=== PATIENT | male | born 1955 | race Caucasian/White ===

== ENCOUNTER 2016-08-16 06:33 | Day surgery (SDC) | payer OTHER ==
[2016-08-16] VITALS (11 sets, daily range): BP systolic 136–162; BP diastolic 74–89; PULSE 53–72; RESP 12–17; O2SAT 95–98
[~2016-08-16] VITALS: Ht 182.9 cm; Wt 86.2 kg
[~2016-08-16 06:33] MED LIST: Bupivacaine Liposome 1.3% 20 mL Inj INFILTRATE SCH; Lactated Ringer's 1,000 ML IV ONE; Vancomycin Inj 1,000 MG in IV Premix 1 EACH IV ONE
[2016-08-16] MEDS ORDERED: Propofol 10,000 mCg/mL 20 mL Inj ONE (06:34)
[2016-08-16] MEDS ORDERED: fentaNYL-PF 50 mCg/mL 2 mL Inj ONE (06:34)
[2016-08-16] MEDS ORDERED: Dexamethasone 4 mg/mL Inj ONE (06:34)
[2016-08-16] MEDS ORDERED: Ondansetron 2 mg/mL 2 mL Inj ONE (06:34)
--- NOTE | 2016-08-16 06:40 | PCM.HPANE ---
Patient Data Surgeon Admitting Provider: Attending Provider:Frank Elliott MD Primary Care Physician:Cristal Bustillos MD Other Provider:Charla Hernandezingham Anesthesia Reason for Visit Left Knee Arthritis Ht/WT & BMI Height (Feet): 6 Height (Inches): 0.5 Weight (Kilograms): 85.37 Body Mass Index 25.00 Allergies Coded Allergies: No Known Allergies (Verified Allergy, Unknown, 08/10/16) Past Anesthesia History Anesthesia History: Denies:: Abnormal Airway, Difficult Intubation, Fam Anesthesia Reaction, Fam Malignant Hypertherm, Malignant Hyperthermia Diabetes History Hx Diabetes?: No MRSA MRSA: No Medications No Active Prescriptions or Reported Meds History History of ENT Problems?: No HEENT History: Denies:: Abnormal Airway Difficult Intubation Dysphagia Hearing Problem Hx of Heart Problems?: Yes Cardiovascular History: Denies:: Atrial Fibrillation Chest Pain Heart Murmur Hypertension Thrombophlebitis (VARICOSITY RLE) Hx of Respiratory Problem?: Yes Respiratory History: Positive for:: Cough Denies:: Asthma COPD Hemoptysis Pneumonia Tuberculosis Use of C-PAP Machine Hx Neurologic Problems?: No Neurological History: Denies:: CVA Hx of GI Problems?: Yes Gastrointestinal History: Denies:: Diverticulitis (DIVERTICULOSIS) Gastroesphageal Reflux Hiatal Hernia Rectal Bleeding (HX OF COLON POLYPS/HEMORRHOIDS) Other GI Pertinent History: HX UMBILICAL HERNIA INTENTIONAL 30# WEIGHT LOSS S/P APPY,EXC SEBACEOUS CYST ON ABD Hx of Problems?: No Male Hx: Denies:: Prostate Problems Scrotal Mass Testicular Surgery Skin History: Positive for:: History Skin Disorders? (S/P EXC BASAL CELL CA) Denies:: Pressure Ulcers Hx Musculoskeletal Problems?: Yes Musculoskeletal History: Positive for:: Degenerative Joint Musculoskeletal Trauma (S/P B/L KNEE MENISECTOMIES) Osteoarthritis (LT KNEE=CURRENT PROBLEM) Denies:: Joint Replacement Hx of Psycho/Social Problems?: No Hx Surgeries?: Yes (left foot nerve, bilateral knee, appy,EXC BASAL CELL CA, SEBACEOUS CYST EXC) Hx Any Other Health Problems?: Yes Other History: Positive for:: Cancer (BASAL CELL CA) Denies:: Endocrine Disease Hospitalization Thyroid Disease History Blood Transfusions: Denies:: Blood Transfusions Hx Diabetes: No Hx Alcohol Use: YesAlcoholic Drinks Per Day: 7/WEEKHx Substance Use: Yes ( TRIED MARIJUANA FOR PAIN CONTROL) Smoking Status: Never Smoker Have You Smoked inLast 12 mo: No Stop/Bang S-Snoring: Do You Snore Loudly: No T-Tired: feel tired, fatigued: No O-Obsered: Observed not breath: No P-Blood Pressure: treated: No B- Body Mass Index > 35 kg/m2: No A- Age over 50: Yes N- Neck Large Circumference: No G- Gender Male: Yes SABINE Total Score: 2 SABINE Risk Assessment: Low Risk, <3 Yes Risk Assessment Category Category 1A: Patient has history of documented sleep apnea, and HAS NOT received any narcotic, sedative or anesthesia administration during this stay. Category 1B: Patient has history of documented sleep apnea, and HAS received any narcotic , sedative or anesthesia administration during this stay Category 2: Patient has SUSPECTED Obstructive Sleep Apnea, and HAS received any narcotic , sedative or anesthesia administration during this stay. Category 3: Patient has SUSPECTED Obstructive Sleep Apnea and HAS NOT received narcotic, sedative or anesthesia administration during this stay. Category 4: Outpatient in Procedural Areas with known sleep apnea or who screen positive for High Risk via the STOP/BANG questionnaire. Exam Exam General Appearance: Alert, Oriented X3, Cooperative, No Acute Distress HEENT/AIRWAY: MP 2 Lungs: Clear to Auscultation, Normal Air Movement Heart: Exam Unremarkable, Regular Rate/Rhythm, No Murmurs/Rubs/Gallops Plan Impression Patient chart reviewed, patient interviewed and anesthestic plan with risks, benefits, and alternatives discussed, and informed consent obtained. ASA Physical Status: ASA1 Normal Healthy Anesthetic Plan: GA Bene/Risks/Altern/Consents: Yes HP Complete Prior to Induction: Yes Kymberly Baird MD Aug 16, 2016 06:40
[2016-08-16] MEDS: CeFAZolin Inj 2 GM in IV Premix 1 EACH IV ONE ×2 (07:20→08:50)
[2016-08-16] MEDS ORDERED: Gentamicin 40 mg/mL 2 mL Inj IRRIGATION ONE (09:21)
[2016-08-16] MEDS ORDERED: Bupivacaine Liposome 1.3% 20 mL Inj INFILTRATE ONE (09:21)
[2016-08-16] MEDS ORDERED: Bupivacaine-MPF 0.25%/EPI 30 mL Inj INJ ONE (09:21)
[2016-08-16] MEDS ORDERED: Labetalol 5 mg/mL 4 mL Inj IV PRN (10:50)
[2016-08-16] MEDS ORDERED: Dexamethasone 4 mg/mL Inj IVPUSH PRN (10:50)
[2016-08-16] MEDS ORDERED: fentaNYL-PF 50 mCg/mL 2 mL Inj IVPUSH PRN (10:50)
[2016-08-16] MEDS ORDERED: HYDROmorphone 1 mg/mL Inj IVPUSH PRN (10:50)
[2016-08-16] MEDS ORDERED: Lactated Ringer's 500 ML IV PRN (10:50)
[2016-08-16] MEDS ORDERED: Ondansetron 2 mg/mL 2 mL Inj IVPUSH PRN (10:50)
[2016-08-16] MEDS ORDERED: EPHEDrine Sulfate 50 mg/mL Inj IVPUSH PRN (10:50)
[2016-08-16] MEDS ORDERED: hydrALAZINE 20 mg/mL Inj IVPUSH PRN (10:50)
[2016-08-16] MEDS ORDERED: Atropine 0.4 mg/mL Inj IVPUSH PRN (10:50)
[2016-08-16] MEDS ORDERED: Phenylephrine 10,000 mCg/mL Inj IVPUSH PRN (10:50)
[2016-08-16] MEDS ORDERED: MetoCLOpramide 5 mg/mL 2 mL Inj IVPUSH PRN (10:50)
[2016-08-16] MEDS ORDERED: Lactated Ringer's 1,000 ML IV SCH (10:50)
--- NOTE | 2016-08-16 11:14 | DRSVH ---
PROCEDURE: X-RAY LEFT KNEE, ONE OR TWO VIEWS ([id number]) INDICATIONS: CHECK ALIGNMENT TECHNIQUE: 2 view(s) of the knee acquired. COMPARISON: None. FINDINGS: Bones: Patient is status post medial unicondylar knee joint arthroplasty. Hardware components are i n expected positions. Visualized bony structures are intact. Soft tissues: Overlying postoperative changes are noted. Chondrocalcinosis is present in the latera l compartment. IMPRESSION: Expected appearance of unicondylar knee arthroplasty. Dictated by: Rena Donato M.D. on 08/16/2016 at 11:12 Approved by: Rena Donato M.D. on 08/16/2016 at 11:12
--- NOTE | 2016-08-16 11:24 | PCM.ANEP1 ---
Post Anesthesia Phase 1 PACU Phase 1 Assessment Vital Signs Vital Signs Date Time Temp Pulse Resp B/P Pulse Ox O2 Delivery O2 Flow Rate FiO2 08/16/16 11:10 67 12 155/79 96 Room Air 08/16/16 11:05 71 15 157/80 96 Room Air 08/16/16 11:00 72 17 162/81 96 Room Air 08/16/16 10:55 67 16 145/77 98 Room Air 08/16/16 10:48 36.4 62 15 151/82 96 Simple Mask 8 08/16/16 07:07 37.3 53 16 147/77 98 Room Air Anesthetic Administered: GA Level of Alertness: Awake, talking BUCKLEY's with Equal Strength: Yes Pain: No Nausea or Vomiting: No Oxygen Delivery: Simple Mask Lungs: Clear to Auscultation, Normal Air Movement Kymberly Baird MD Aug 16, 2016 11:24
[2016-08-16] MEDS ORDERED: oxyCODONE-Acetamin 5-325 mg Tablet PO ONE (11:59)
--- NOTE | 2016-08-16 15:42 | PCM.ANEP2 ---
Post Anesthesia Evaluation ASA/CMS Post Anesthesia VS in Patient's Normal Range?: Yes Resp Stable; Airway Patent?: Yes CV Function & Hydration Stable: Yes Mental Status Recovered?: Yes Pain control Satisfactory?: Yes N/V Control Satisfactory?: Yes Kymbelry Baird MD Aug 16, 2016 15:42
--- NOTE | 2016-08-17 00:22 | OP ---
[address] [address] OPERATIVE REPORT PATIENT: WANDA BRITTON V : 1955 MR#: [id number] ADMIT: 08/16/2016 JOB ID: [id number] DATE OF SURGERY: 08/16/2016 PREOPERATIVE DIAGNOSIS(ES): Advanced medial compartment osteoarthritis. POSTOPERATIVE DIAGNOSIS(ES): Advanced medial compartment osteoarthritis. PROCEDURE: Unicompartmental knee arthroplasty. SURGEON: Frank Elliott MD. ICT SECURITY SPECIALIST: Shobha Clemente PA-C. Test Examiner required due to the complexity of the operation. INDICATIONS FOR THE PROCEDURE: This gentleman has advanced medial compartment osteoarthritis. Symptoms are uncontrolled by conservative treatment techniques and he elects and requests proceeding with the unicompartmental knee arthroplasty. PROCEDURE: The patient was prepped and draped in usual sterile fashion. An anteromedial approach was made in the knee. Dissection was carried down. Patellar osteophyte was removed. The tibial guide was placed in appropriate position and rotation with careful attention paid to placement of the corner pin. was utilized 4 mm for the depth of tibial cut. The sagittal and oscillating saw was utilized to make a tibial cut. Bone fragment removed. The knee was placed in extension and a 9 mm spacer block was utilized. The knee was noted to be too tight and the tibial re-cut guide was assembled and 2 additional millimeters of bone were removed. At this point in time, excellent alignment and soft tissue tension was achieved with a 9 mm spacer block which was fixed to the femur and a distal femoral cut was made. Wounds were irrigated with sterile irrigant. The femur was sized to a 5 femoral component, fixed in appropriate position and rotation with the two pins. Drill holes and chamfer cuts were made. Bone fragments were removed. The tibia was sized to a J component fixed in appropriate position and rotation. Trial reduction performed. A 9 mm polyethylene was chosen, both based on soft tissue characteristics, as well as the alignment rods. All meniscal tissue and osteophytes were removed. Pressurized lavage was followed by pressurized cementation. Excess cement removed during the curing process. Final construct was assembled. Snapping the polyethylene securely into place. The tourniquet was let down. Hemostasis was achieved. A deep Hemovac drain was left. A #2 Quill was utilized for deep closure, followed by 2-0 Vicryl, 3-0, and a 4-0 intracuticular stitch. Patient tolerated procedure well. There were no complications.
== END 2016-08-16 23:59 | disposition home or self-care (01) ==
LOC: SAS 06:33
PROVIDERS: ATTEND Orthopaedic Surgery
DX: M17.12 Unilateral primary osteoarthritis, left knee (principal); R05 Cough
CPT/HCPCS: 27446; 73560; C1713; C1776; J0690; J1100; J1170; J1580; J2250; J2405; J3010; J7120